=== PATIENT | male | born 2000 | race Caucasian/White ===

== ENCOUNTER 2024-08-16 14:59 | Emergency (ER) | payer SELFPAY ==
[2024-08-16 15:05] VITALS: BP 143/98; PULSE 90; RESP 16; TEMP 36.8; O2SAT 99; BMI 25.7
[2024-08-16] MEDS: lidocaine 2% viscous 15 mL UDC TOPICAL (15:52)
[2024-08-16] MEDS: ibuprofen 600 mg Tablet PO (15:52)
--- NOTE | 2024-08-16 16:44 | ED_ITS ---
HPI - Dental/Oral 2 General: Chief complaint: Dental/Oral Stated complaint: tooth pain on right side of face Time Seen by Provider: 08/16/24 15:11 Source: patient Mode of arrival: ambulatory Limitations: no limitations History of Present Illness: Patient is a 23-year-old male that presents to the emergency department with right upper dental pain for the past 2 days. He states he does have a dental appointment in August but he is unable to get in prior to that. He denies any fever or chills. He denies any nausea or vomiting. He denies any history of seizures. He states nothing has been making the symptoms better and he presents to the emergency department for further evaluation and treatment. Associated symptoms: Denies fever(s) or tongue swelling Related Data Previous Rx's ?Medication ?Instructions ?Recorded amoxicillin 875 mg-potassium 1 tab PO BID #20 tabs clavulanate 125 mg tablet chlorhexidine gluconate 0.12 % 15 ml buccal BID Dental infection 08/16/24 mouthwash (Peridex) #473 mL lidocaine HCl 2 % mucosal solution 15 ml mucous membra ne Q4H PRN pain 08/16/24 (Lidocaine Viscous) #100 mL naproxen 500 mg tablet 500 mg PO Q12H PRN pain #10 tabs 08/16/24 tramadol 50 mg tablet 50 - 100 mg (1 - 2 x 50 mg) PO 08/16/24 .Q6-8H PRN pain #10 tabs Allergies Allergy/AdvReac Type Severity Reaction Status Date / Time No Known Allergies Allergy Verified 08/16/24 15:09 Review of Systems 2 General: Reports: 10 or more systems reviewed and unremarkable except in HPI and below Const: Denies: fever(s) or chills Eyes: Denies: eye redness ENMT: Reports: dental pain (Right sided) Card: Denies: chest pain Resp: Denies: dyspnea, productive cough or non-productive cough GI: Denies: abdominal pain, nausea or vomiting Musc: Denies: neck pain Skin/Breast: Reports: other (Mild facial swelling on the right, intermittently, none now); Denies: rash or erythema Neuro: Denies: headache(s), numbness in extremities or weakness in extremities All/Imm: Denies: tongue swelling PFSH ED 2 PFSH: Medical History (Updated 08/16/24 @ 16:51 by ANNALISE Gonsales) Dental infection Social History (Updated 08/16/24 @ 16:46 by ANNALISE Gonsales) Smoking and tobacco/nicotine status: current every day tobacco/nicotine user Physical Exam 2 Const: COMMON NORMALS: no acute distress and alert GENERAL APPEARANCE: c ooperative HENMT: COMMON NORMALS: normocephalic, atraumatic and Normal external nose present HEAD & SCALP: normocephalic and atraumatic NOSE: Normal external nose present MOUTH: Normal oral and palatal mucosa present; no drooling TEETH & GINGIVA IMAGES: 1. Dental tenderness and caries. No pointing abscess noted along the gumline. THROAT: uvula midline Eye: COMMON NORMALS: conjunctivae normal CONJUNCTIVA: Yes conjunctivae normal Neck/C-Spine: COMMON NORMALS: full ROM and no meningeal signs Resp: COMMON NORMALS: clear to auscultation bilaterally EFFORT & INSPECTION: Yes able to speak in complete sentences AUSCULTATION: clear to auscultation bilaterally, no crackles, no rales, no rhonchi and no wheezes Cardio: COMMON NORMALS: regular rate and regular rhythm RATE: regular rate RHYTHM: regular rhythm Extremity: COMMON NORMALS: normal to inspection and full ROM Neuro: SENSORIUM/ORIENTATION: Yes alert MENINGEAL SIGNS: Yes no meningeal signs Psych: COMMON NORMALS: mental status grossly normal, cooperative and speech normal SPEECH: Yes normal speech Skin: COMMON NORMALS: no rashes or lesions noted, no jaundice and no petechiae GENERAL SKIN EXAM: no rashes or lesions noted Course 2 Vital Signs: Vital signs: Vital Signs Temperature 98.2 F 08/16/24 15:05 Pulse Rate 85 08/16/24 17:05 Respiratory Rate 18 08/16/24 17:05 Blood Pressure 143/98 08/16/24 15:05 Pulse Oximetry 99 08/16/24 17:05 Oxygen Delivery Me thod Room Air 08/16/24 15:05 MDM - Dental/Oral Medical Decision Making Patient was advised of the exam findings. He does have some dental caries in the right upper jaw. There is no sign of pointing abscess at this time. Patient wishes to have his prescription sent to [facility] pharmacy in [place]. I recommended he use the medications as directed and follow-up with his dentist next month as scheduled. He was advised to return to the emergency department with any worsening symptoms. We will give the patient a note for work for today and tomorrow. He expressed understanding. Differential Diagnosis Likely gingival abscess, dental caries, toothache, dental abscess and fracture of tooth No radiology studies performed this visit Critical Care Time 2 Critical Care Time: Critical Care Time: No Discharge Plan Discharge Patient Disposition: Home Clinical Impression: Dental caries, Fracture of tooth, Dental infection Condition: Stable Prescriptions: New naproxen 500 mg tablet 500 mg PO Q12H PRN (Reason: pain) Qty: 10 0RF tramadol 50 mg tablet 50 - 100 mg PO .Q6-8H PRN (Reason: pain) Qty: 10 0RF Rx Instructions: No alcohol use or driving with this medication. lidocaine HCl [Lidocaine Viscous] 2 % solution 15 ml mucous membrane Q4H PRN (Reason: pain) Qty: 100 0RF Rx Instructions: Swish and spit amoxicillin-pot clavulanate 875-125 mg tablet 1 tab PO BID Qty: 20 0RF chlorhexidine gluconate [Peridex] 0.12 % mouthwash 15 ml buccal BID Qty: 473 0RF Rx Instructions: Swish and spit Discharge Orders: Discharge ED (Routine); Ordered 08/16/24 Ordered By: Navneet Villegas Referrals: Yandy Pineda DO [Family Provider, Family Practice] Elijah Weiner FNP [Primary Care Provider, Orthopedics] Discharge Diet: Soft Mechanical Discharge Activity: Resume usual activity Patient Instructions: Dental Caries (Cavities), Dental Abscess (ED), Opioid Safety, Pain Management Activity Restrictions/Additional Instructions: Use the medications as directed. Your prescriptions were sent electronically to the [facility] pharmacy in [place]. Warm salt water rinses 3 times a day. Please try to quit smoking. Follow-up with a dentist as soon as possible. Warm compresses 15 minutes at a time, 5 times throughout the day as needed for pain. If the warm compress makes the swelling worse you may alternate with ice. Return to the emergency department with any worsening symptoms. Stand Alone Forms: Work/School Release Print Language: South African Coding Level of Care Code ED Prepress Technician for Naheed Alvarenga
[2024-08-16 17:05] VITALS: PULSE 85; RESP 18; O2SAT 99
== END 2024-08-16 17:06 | disposition home or self-care (01) ==
PROVIDERS: Emergency Provider Physician Assistant; Family Provider Family Medicine; PCP Nurse Practitioner Family
DX: K02.9 Dental caries, unspecified (principal); S02.5XXA Fracture of tooth (traumatic), initial encounter for closed fracture; K04.7 Periapical abscess without sinus; Z72.0 Tobacco use; X58.XXXA Exposure to other specified factors, initial encounter
CPT/HCPCS: 12345; 99283; J9999